=== PATIENT | male | born 1940 | race Hispanic/Latino ===

== ENCOUNTER 2020-10-28 13:14 | Observation (INO) | payer SELFPAY ==
[2020-10-28] VITALS (18 sets, daily range): BP systolic 104–148; BP diastolic 44–78; PULSE 63–91; RESP 16–20; TEMP 36.2–36.7; O2SAT 90–100; BMI 33.3
--- NOTE | ~2020-10-28 | XR_ITS ---
EXAMINATION: XR chest 1V portable DATE: 10/28/2020 13:35 INDICATION: Hypoxia. Altered mental status. TECHNIQUE: A single frontal view of the chest was obtained on 3 radiographs. COMPARISON: None. FINDINGS: The lung volumes are small. There is mild atelectasis at the lung bases. No pleural effusio n or pneumothorax. The heart size is normal. IMPRESSION: 1. Small lung volumes with mild atelectasis at the lung bases. Reviewed, dictated and finalized at location A.
--- NOTE | ~2020-10-28 | MR_ITS ---
EXAMINATION: MR brain/brain stem wo/w con DATE: 10/29/2020 12:06 INDICATION: Pituitary mass. TECHNIQUE: Magnetic resonance imaging (MRI) of the brain and brainstem was performed without and with 20 mL MultiHance intravenous contrast. Whole-brain sequences included sagittal T1-weighted FSE, axia l diffusion-weighted FS EPI, axial T2*-weighted GRE, axial T2-weighted FLAIR Propeller, and axial T2- weighted Propeller. Small vvjkk-fe-rkyz sequences included sagittal and coronal T1-weighted FSE cente red at the pituitary. Postcontrast sequences included small clhcx-wj-bmyx coronal T1-weighted FSE in a time course and sagittal T1-weighted FSE and whole-brain axial T1-weighted FSE. Apparent diffusion coefficient (ADC) maps were created. COMPARISON: Head CT 10/28/2020 FINDINGS: There is a hypoenhancing pituitary mass measuring 16 x 13 x 14 mm extending into the supras ellar cistern. The infundibulum is at the midline. No mass effect on the optic chiasm. There are scat tered areas of nonspecific increased T2-weighted signal intensity in the cerebral white matter, which is within normal limits for the patient's age. There is no acute ischemic infarct or intracranial he morrhage. The ventricles are normal in size. The paranasal sinuses are clear. The orbits are normal. The mastoid air cells are normal. IMPRESSION: 1. 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 Reviewed, dictated and finalized at location A.
--- NOTE | ~2020-10-28 | US_ITS ---
EXAMINATION: US carotid duplex BI DATE: 10/29/2020 13:47 INDICATION: Syncope. TECHNIQUE: Grayscale, color Doppler, and pulsed Doppler images of the cervical carotid arteries were obtained. The degree of vessel stenosis is placed in one of the following categories: normal, <50%, 5 0-69%, >=70% but less than near-occlusion, near-occlusion, or total occlusion. Note that percent sten osis relative to normal distal artery lumen diameter is indirectly measured from velocity measurement s as described by Jim, et al. Radiology 2003; 229:340-346. COMPARISON: None. FINDINGS: RIGHT: The right common carotid artery (CCA) peak systolic velocity (PSV) is 90 cm/s. The right internal car otid artery (ICA) PSV is 74 cm/s. The right ICA end-diastolic velocity (EDV) is 18 cm/s. The right IC A/CCA PSV ratio is 0.8. Grayscale and color Doppler images yield an estimate of <50% diameter reducti on from plaque in the ICA. There is antegrade flow in the right vertebral artery. LEFT: The left CCA PSV is 73 cm/s. The left ICA PSV is 128 cm/s. The left ICA EDV is 39 cm/s. The left ICA/ CCA PSV ratio is 1.7. Grayscale and color Doppler images yield an estimate of <50% diameter reduction from plaque in the ICA. There is antegrade flow in the left vertebral artery. IMPRESSION: 1. <50% stenosis in the right internal carotid artery. 2. <50% stenosis in the left internal carotid artery. Reviewed, dictated and finalized at location A.
--- NOTE | ~2020-10-28 | CT_ITS ---
EXAMINATION: CT brain wo con EXAM DATE: 10/28/2020 14:25 INDICATION: Altered mental status, patient found unresponsive. Nonverbal. TECHNIQUE: Spiral CT of the head was performed without contrast. Axial, coronal and sagittal images were reviewed. The dose-length product (DLP) for this examination was 605.33 mGy-cm. The exposure w as tailored according to patient size, and iterative reconstruction (ASIR) was used as additional dos e reduction technique. There is no prior study for comparison. FINDINGS: There is no acute intraparenchymal hemorrhage. Pituitary gland is enlarged measuring about 1.2 cm craniocaudal dimension, possibly with cystic region inferiorly. This is an incidental finding and could be evaluated with MR brain/pituitary when patient is able. No evidence of acute infarction . Please note that initial head CT has limited sensitivity for small or acute infarctions. There is mild periventricular and subcortical hypodensity, nonspecific but probably related to small vessel is chemic disease. There is moderate prominence of the sulci and ventricles related to cerebral atroph y. There is intracranial carotid arteriosclerosis. There are no extra-axial collections. There is no mass effect or midline shift. The orbits are unremarkable. Soft tissue is unremarkable. The vi sualized sinuses and mastoid air cells are well aerated. IMPRESSION: 1. No acute intracranial findings. 2. Incidental mildly enlarged pituitary; recommend MR brain/pituitary with contrast when patient is able. 3. Age-related intracranial findings. Reviewed, dictated and finalized at location A. IMPRESSION: 1. No acute intracranial findings. 2. Incidental mildly enlarged pituitary; recommend MR brain/pituitary with con trast when patient is able. 3. Age-related intracranial findings.
--- NOTE | ~2020-10-28 | CT_ITS ---
EXAMINATION: CT abdomen pelvis wo con DATE: 10/29/2020 10:16 INDICATION: Mid abdominal pain. TECHNIQUE: Computed tomography (CT) of the abdomen and pelvis was performed without intravenous contr ast. Automated exposure control and iterative reconstruction technique were employed. The dose-length product was 896.16 mGy-cm. COMPARISON: None. FINDINGS: The visualized portions of the lung bases demonstrate mild atelectasis. No pleural effusion . The heart size is normal. No pericardial effusion. The liver, gallbladder, spleen, pancreas, adrena l glands, and right kidney are normal. There is a 1.8 cm cyst in left kidney. The prostate is severel y enlarged. There are no dilated loops of bowel. The appendix is normal. There are no pathologically enlarged lymph nodes. There is no free intraperitoneal fluid. There is lumbar levoscoliosis and sever e spondylosis. IMPRESSION: 1. No etiology for the patient's symptoms. Reviewed, dictated and finalized at location A.
[2020-10-28] MEDS: SODIUM CHLORIDE 0.9% IV 1,000 ML 999 ML IV CONT (13:15)
[2020-10-28] MEDS: EPINEPHrine HCL INJ 1 MG/ML AMPUL 0.3 MG SUB-Q (13:21)
--- NOTE | 2020-10-28 13:52 | ED.AMS ---
HPI - Altered Mental Status General Chief Complaint: Altered Mental Status Stated Complaint: ambulance Time Seen by Provider: 10/28/20 13:18 Source: EMS Mode of arrival: EMS Limitations: altered mental status History of Present Illness HPI narrative: 80-year-old man brought into the emergency department today by EMS after having been found by his son-in-law sitting and unconscious. Patient was helping His son-in-law well as son-in-law worked on a roof. The son-in-law found him slumped over in a chair and unresponsive. EMS states that he spoke some Dutch at the scene and had moved all of his limbs, even pushing them away somewhat. He then reverted to his unresponsive state. Blood sugar was 139 at the scene. Son in law notes that there were some wasps at the scene. No known past medical history. MD complaint: altered mental status Onset (ago): minute(s) (30) Timing confirmed by: family member Severity: severe Consistency of symptoms: waxing and waning Treatments prior to arrival: IV fluid Related Data Home Medications Medication Instructions Recorded Confirmed No Home Medications 10/28/20 10/28/20 Allergies Allergy/AdvReac Type Severity Reaction Status Date / Time No Known Allergies Allergy Verified 10/28/20 14:47 Review of Systems Review of Systems: ROS unobtainable: Yes unobtainable due to mental status [facility] Social History Social History (Updated 10/28/20 @ 16:42 by Edgardo Chambers MD) Smoking status: Never smoker Alcohol intake: never Alcohol use details: Occasional Substance use: never Living arrangements: with family Gender identity (if verbalized by the patient): Male Sexual Orientation (if Verbalized by the Patient): Straight or Heterosexual Spiritual care concerns: No Exam Const: General: no acute distress and diaphoretic Nutritional Appearance: obese Other: diffuse erythema HENMT: Head: normal to inspection Ears: external ears normal, TM's normal bilaterally and EAC's normal General nose exam: Normal nares present Face and sinus: normal facial exam Mouth: Yes moist mucous membranes Throat: posterior oropharynx normal Eyes: Conjunctivae: conjunctivae normal Pupils: Equal, round and reactive pupils present EOM: EOMs intact bilaterally Neck: Neck: normal visual inspection and no lymphadenopathy Resp: Effort & Inspection: not labored Auscultation: clear to auscultation bilaterally, no rales, no rhonchi and no wheezes Other: Diminished respiratory effort. Currently on non-rebreather. Cardio: Rate: regular rate Rhythm: regular rhythm Heart sounds: no murmurs Other: No JVD. GI: GI Palp: Yes Soft to palpation, No Tenderness to palpation present (GI) and No Guarding due to palpation present (GI) Auscultation: normal bowel sounds Skin: General skin exam: no jaundice and no pallor Other: Diffuse erythema Neuro: General: moves all extremities and no focal motor deficits Other: Symmetric faces. Extrem: General: normal to inspection Other: No clubbing or cyanosis. Mild diffuse edema. Psych: Appearance: well kempt Other: Occasionally mumbles to stimulation. Does not withdraw to pain. Course Course Emergency Course: 1445: Through his son as a freezer person, patient is alert and oriented x 3. He states that there was a lot of dust at the scene and does not recall getting stung by an insect or anything else other than feeling lightheaded which caused him to sit down and then pass out. Denies pain, chest pain, nausea, sweating, shortness of breath. 1645: Discussed plan with family and patient with his son being a freezer person. Agrees to observation admit with MRI tomorrow. Vital Signs Vital signs: Vital Signs Temperature 36.2 C L 10/28/20 13:15 Pulse Rate 91 10/28/20 13:15 Respiratory Rate 20 10/28/20 13:15 Blood Pressure 104/67 10/28/20 13:15 Pulse Oximetry 90 10/28/20 13:15 Temperature 36.3 C L 10/28/20 17:15 Pulse
--- NOTE | 2020-10-28 13:56 | PC.NURSE ---
1355 EMS HAD STARTED AN IV IN RIGHT HAND IT WAS PULLED OUT WHEN GETTING HIS CLOTHS CUT OFF
[2020-10-28 14:08] LABS: Base Excess ABG -2.9 mmol/L (0-2); HCO3 ABG 21.9 mmol/L (23-29); Oxygen Content ABG 21.6 %vol (16.0-22.0); Oxygen Saturation ABG 94.3 % (95-97); Oxyhemoglobin 93.9 % (94-100); PCO2 ABG 38.7 mmHg (35-45); PO2 ABG 70.8 mmHg (75-85); Total Hemoglobin 16.4 g/dL; pH ABG 7.37 (7.35-7.45)
--- NOTE | 2020-10-28 14:08 | ECG_ITS ---
Measurements Intervals [place] Rate: 89 P: 59 ID: 128 QRS: 60 QRSD: 105 T: 45 QT: 394 QTc: 481 Interpretive Statements SINUS RHYTHM INFERIOR INFARCT, AGE INDETERMINATE BORDERLINE ST ABNORMALITY- ANTEROLATERAL LEADS BASELINE ARTIFACT- I, AVL ABNORMAL ECG Electronically Signed On 10-28-2020 16:51:10 CDT by Pio Caceres D.O.
[2020-10-28 14:12] LABS: Device NASAL CANNULA; Site Drawn LEFT RADIAL
[2020-10-28 14:13] LABS: Basophils Absolute Auto 0.03 K/mm3 (0.00-0.10); Basophils Percent Auto 0.2 % (0.0-1.0); Eosinophils Absolute Auto 0.24 K/mm3 (0.02-0.50); Eosinophils Percent Auto 1.6 % (1.0-6.0); Hematocrit 49.1 % (37.0-46.0); Hemoglobin 15.8 g/dL (12.4-15.3); Immature Granulocyte Absolute 0.06 K/mm3 (0.00-0.00); Immature Granulocyte Percent A 0.4 % (0.0-0.0); Lymphocytes Absolute Auto 3.75 K/mm3 (1.10-4.50); Lymphocytes Percent Auto 25.6 % (18.0-42.0); Mean Corpuscular HGB Conc 32.2 g/dL (32.0-36.0); Mean Corpuscular Hemoglobin 28.8 pg (27.0-31.0); Mean Corpuscular Volume 89.6 fL (78.0-102.0); Mean Platelet Volume 11.1 fl (8.7-11.0); Monocytes Percent Auto 4.8 % (2.0-11.0); Neutrophils Absolute Auto 9.9 K/mm3 (1.7-7.2); Neutrophils Percent Auto 67.4 % (50.0-70.0); Platelet Count Result 221 K/mm3 (150-420); Red Blood Count 5.48 M/mm3 (4.70-6.10); Red Cell Distribution Width 14.5 % (11.6-14.4); White Blood Count 14.7 K/mm3 (4.8-10.8)
[2020-10-28 14:23] LABS: Add Urine Microscopic? YES; Appearance Urine Clear (Clear); Bilirubin Urine Negative (Negative); Blood Urine 3+ (Negative); Color Urine Yellow (Yellow); Glucose Urine UA Negative (Negative); Ketones Urine Negative (Negative); Leukocyte Esterase Ur Negative LEU/UL (Negative); Nitrate Urine Negative (Negative); Protein Urine Negative (Negative); Specific Grav Ur >= 1.030 (1.010-1.020); Urobilinogen Urine 0.2 mg/dL (0.2-1.0); pH Urine 5.5 (5.0-8.0)
[2020-10-28 14:31] LABS: Alanine Aminotransferase 18 U/L (16-63); Albumin Level 3.2 g/dL (3.4-5.0); Alkaline Phosphatase 36 U/L (46-116); Ammonia 12 umol/L (11-32); Anion Gap 10 mmol/L (8-16); Aspartate Amino Transferase 20 U/L (15-37); Bilirubin,Total 0.6 mg/dL (0.00-1.00); Blood Urea Nitrogen 16 mg/dL (7-18); Calcium 8.7 mg/dL (8.5-10.1); Carbon Dioxide 27 mmol/L (21-32); Chloride 104 mmol/L (98-108); Creatine Kinase 128 U/L (39-308); Estimated Glomerular Filt Rate 47; Glucose 153 mg/dL (70-99); Osmolality Calculated 296 mOsm/kg (285-295); Potassium 2.9 mmol/L (3.5-5.1); Salicylate 0.4 mg/dL (2.8-20.0); Sodium 141 mmol/L (136-145); Total Protein 6.2 g/dL (6.4-8.2); Troponin I 14.6 ng/L (0.00-60.4)
[2020-10-28 14:33] LABS: Acetaminophen < 2 ug/mL (10-30); Ethanol < 3 mg/dL (0-6)
[2020-10-28 14:34] LABS: Lactic Acid Reflex 3.6 mmol/L (0.4-2.0)
[2020-10-28 14:34] LABS: INR 1.1; Partial Thromboplastin Time 24.2 SEC (23.90-30.70); Prothrombin Time 11.7 Seconds (9.50-12.10)
[2020-10-28 14:40] LABS: Amphetamine Screen Urine Negative (Negative); Barbiturate Screen Urine Negative (Negative); Benzodiazepines Screen Urine Negative (Negative); Cannabinoid Screen Urine Negative (Negative); Cocaine Screen Urine Negative (Negative); Methadone Screen Urine Negative (Negative); Opiate Screen Urine Negative (Negative); Phencyclidine Screen Urine Negative (Negative)
[2020-10-28 14:44] LABS: RBC Urine 51-75 /hpf (0-2); Squamous Epithelial Cell Urine Few /hpf (Few); WBC Urine 0-3 /hpf (0-3)
[2020-10-28] MEDS: methylPREDNISolone SOD SUCC 125 MG VIAL IV PUSH (14:50)
[2020-10-28] MEDS: POTASSIUM CHLORIDE 20 MEQ TABLET 40 MEQ PO (17:03)
[2020-10-28 17:08] LABS: Reflex Lactic Acid Yes or No Add Lactic
--- NOTE | 2020-10-28 17:36 | ADMGEN ---
This patient, Bobby Whitmore, was admitted to 2nd Floor Room 203-2. Patient/family oriented to hospital policies and general routines including ID bracelet, bed and alarms, visiting hours, pain management, procedures, bathroom and other care routines, personal items, smoking policy, room service/diet, and visiting hours. Patient is azeri speaking,Son who is bilingual is in room to assist in translation. Information on how to activate the Rapid Response Team has been discussed. Patient/Family are encouraged to report perceived risks to care and to ask questions if they do not understand what they are told or what they should do.
[2020-10-28] MEDS: ALBUTEROL SULFATE NEB 2.5 MG/3 ML INH INHALATION ×2 (17:41→22:51)
[2020-10-28] MEDS: SODIUM CHLORIDE 0.9% IV 1,000 ML 100 ML IV CONT (17:45)
[2020-10-28] MEDS: KCL 20 MEQ/SW 100 ML 100 ML 50 MEQ IVPB (17:46)
[2020-10-28 18:26] LABS: Troponin I 97.9 ng/L (0.00-60.4)
--- NOTE | 2020-10-28 18:28 | PC.NURSE ---
TROPONIN REPORTED TO DR ZHU
--- NOTE | 2020-10-28 20:15 | PC.NURSE ---
Son (Oracio) is here and will stay the night with patient. Son speaks Sammarinese and Turkmen and patient only speaks Turkmen so son is able to translate for us.
[2020-10-28 21:20] LABS: Glucose Point of Care 141 (65-105)
[2020-10-28 21:27] LABS: Troponin I 71.9 ng/L (0.00-60.4)
[2020-10-28] MEDS: methylPREDNISolone SOD SUCC 40 MG VIAL IV PUSH (22:02)
[2020-10-28] MEDS: ASPIRIN 81 MG CHEWABLE TABLET 324 MG PO (23:46)
[2020-10-29] VITALS (7 sets, daily range): BP systolic 109–136; BP diastolic 57–75; PULSE 70–90; RESP 16–20; TEMP 36.3–37.1; O2SAT 91–94
[2020-10-29 00:32] LABS: Anion Gap 7 mmol/L (8-16); Blood Urea Nitrogen 18 mg/dL (7-18); Calcium 8.5 mg/dL (8.5-10.1); Carbon Dioxide 26 mmol/L (21-32); Chloride 106 mmol/L (98-108); Estimated CRCL calculation 54 ml/min; Estimated Glomerular Filt Rate > 60; Glucose 145 mg/dL (70-99); Osmolality Calculated 292 mOsm/kg (285-295); Potassium 4.2 mmol/L (3.5-5.1); Sodium 139 mmol/L (136-145)
--- NOTE | 2020-10-29 01:36 | PC.NURSE ---
Reported to Dr. Chambers pt's troponin value of 43.0. No new orders at this time.
[2020-10-29] MEDS: SODIUM CHLORIDE 0.9% IV 1,000 ML 100 ML IV CONT (03:58)
[2020-10-29] MEDS: methylPREDNISolone SOD SUCC 40 MG VIAL IV PUSH ×2 (05:00→13:57)
[2020-10-29 05:28] LABS: Basophils Absolute Auto 0.01 K/mm3 (0.00-0.10); Basophils Percent Auto 0.1 % (0.0-1.0); Hemoglobin 14.6 g/dL (12.4-15.3); Immature Granulocyte Absolute 0.05 K/mm3 (0.00-0.00); Immature Granulocyte Percent A 0.5 % (0.0-0.0); Lymphocytes Absolute Auto 1.18 K/mm3 (1.10-4.50); Lymphocytes Percent Auto 11.5 % (18.0-42.0); Mean Corpuscular HGB Conc 32.4 g/dL (32.0-36.0); Mean Corpuscular Hemoglobin 29.4 pg (27.0-31.0); Mean Corpuscular Volume 90.5 fL (78.0-102.0); Mean Platelet Volume 11.7 fl (8.7-11.0); Monocytes Absolute Auto 0.09 K/mm3 (0.10-0.90); Monocytes Percent Auto 0.9 % (2.0-11.0); Neutrophils Absolute Auto 8.9 K/mm3 (1.7-7.2); Platelet Count Result 194 K/mm3 (150-420); Red Blood Count 4.97 M/mm3 (4.70-6.10); Red Cell Distribution Width 14.9 % (11.6-14.4); White Blood Count 10.3 K/mm3 (4.8-10.8)
[2020-10-29] MEDS: ALBUTEROL SULFATE NEB 2.5 MG/3 ML INH INHALATION (05:36)
[2020-10-29 05:40] LABS: Alanine Aminotransferase 18 U/L (16-63); Alkaline Phosphatase 32 U/L (46-116); Anion Gap 7 mmol/L (8-16); Aspartate Amino Transferase 21 U/L (15-37); Bilirubin,Total 0.5 mg/dL (0.00-1.00); Blood Urea Nitrogen 19 mg/dL (7-18); Calcium 8.3 mg/dL (8.5-10.1); Carbon Dioxide 25 mmol/L (21-32); Chloride 108 mmol/L (98-108); Estimated CRCL calculation 60 ml/min; Estimated Glomerular Filt Rate > 60; Glucose 142 mg/dL (70-99); Osmolality Calculated 294 mOsm/kg (285-295); Potassium 4.1 mmol/L (3.5-5.1); Sodium 140 mmol/L (136-145); Total Protein 6.2 g/dL (6.4-8.2); Troponin I 24.8 ng/L (0.00-60.4)
[2020-10-29 07:52] LABS: Glucose Point of Care 114 (65-105)
[2020-10-29 08:22] LABS: Thyroid Stimulating Hormone Reflex 0.76 u/IU/mL (0.36-3.74)
[2020-10-29 08:43] LABS: Hemoglobin A1C 5.7 % (<5.7)
[2020-10-29 08:47] LABS: Lactic Acid Reflex 1.5 mmol/L (0.4-2.0)
--- NOTE | 2020-10-29 10:05 | PC.NURSE ---
Patient taken down for CTA and MRI of brain via wheelchair accompanied by floor care technician.
--- NOTE | 2020-10-29 10:21 | ECHO_ITS ---
Patient Info Name: Bobby Whitmore Age: 80 years : 1940 Gender: Male Ht: 69 in Wt: 225 lbs BSA: 2.26 m2 HR: 69 bpm BP: 116 / 63 mmHg Technical Quality: Fair Exam Date: 10/29/2020 10:48 AM Exam Location: [facility] Patient Status: Inpatient Admit Date: 10/28/2020 Staff Ordering Physician: Cameron LegerP-[employer] Supervisor: Kenna Infante RDCS Attending Provider: Edgardo Chambers MD Referring Physician: Arsen GRESHAM; Exam Type: CA echo doppler color flow Study Info Indications R55 - Syncope and collapse Complete two-dimensional, color flow and Doppler transthoracic echocardiogram is performed. Strain analysis performed. History/Risk Factors Obesity: Yes Tobacco Use: Never Summary 1. Complete two-dimensional, color flow and Doppler transthoracic echocardiogram is performed. 2. Left ventricular chamber dimension is normal. 3. Left ventricular systolic function is normal, estimated at 65-70%. 4. There is mildly increased left ventricular wall thickness. 5. The left ventricular diastolic function is grade I diastolic dysfunction. 6. E/e' 11 is mildly elevated. 7. Global longitudinal strain is mildly abnormal at -16.3%. 8. There is mild aortic valve sclerosis. 9. There is mild aortic valve regurgitation. 10. No pulmonary hypertension, estimated pulmonary arterial systolic pressure is 29 mmHg. Left Ventricle E/e' 11 is mildly elevated. Global longitudinal strain is mildly abnormal at -16.3%. Left ventricular chamber dimension is normal. Left ventricular systolic function is normal, estimated at 65-70%. There is mildly increased left ventricular wall thickness. The left ventricular diastolic function is grade I diastolic dysfunction. Right Ventricle Right ventricular chamber dimension is normal. Right ventricular systolic function is normal. Left Atria Left atrial chamber dimension is normal. Right Atria Right atrial chamber dimension is normal. Aortic Valve The aortic valve is trileaflet. There is mild aortic valve sclerosis. There is no aortic valve stenosis. There is mild aortic valve regurgitation. Pulmonic Valve There is no pulmonic regurgitation. Mitral Valve There is no mitral valve stenosis. There is no mitral valve regurgitation. Tricuspid Valve There is no tricuspid valve regurgitation. No pulmonary hypertension, estimated pulmonary arterial systolic pressure is 29 mmHg. Pericardium/Pleural There is no pericardial effusion. Inferior Vena Cava Normal inferior vena cava with >50% collapse upon inspiration consistent with normal right atrial pressure, 5 mmHg. Aorta The aortic root size at the sinus of Valsalva is normal. Left Ventricular Outflow Tract Name Value Normal LVOT 2D LVOT Diameter 2.0 cm LVOT Doppler LVOT Peak Velocity 131 cm/s LVOT Peak Gradient 7 mmHg LVOT Mean Gradient 3 mmHg LVOT VTI 32 cm LVOT VTI/AV VTI Ratio 0.9 LVOT Stroke Volume 100
--- NOTE | 2020-10-29 13:10 | PC.NURSE ---
Patient back to room from having MRI/CT. Patient transferred to bed with 1 assist. Lunch tray delivered and set up. Son in room with patient.
--- NOTE | 2020-10-29 13:10 | PM.SD2 ---
Same Day Admit/Disch: HPI History of Present Illness Chief complaint: AMS ALLERGIC REACTION <PIETER Walker - Last Filed: 10/29/20 14:52> Narrative: Bobby Whitmore is a 80 year old male that presented to our emergency room after having a syncopal episode. Patient denies any past medical history. This is a Azeri-speaking patient his son is interpreting for us. According to patient he was assisting his son with repairing a rub and clamped into a dumpster when he started experiencing lightheaded and dizziness. He does admit working around chemicals. Patient then climbed out of the dumpster symphysis to his with the latter afterwards he sat in the chair he noted while sitting in the chair he felt lightheaded dizziness and a warm sensation in body, he does not remember anything afterwards. At this time patient denies SOB, CP, palpitation, extremity numbness, lightheadedness, dizziness, constipation, diarrhea, chills, or fever. Patient did complain of epigastric pain that he has had for approximately 2 to 3 days. Patient is anxious to discharge today Disposition: Patient will discharge home he will need to get a primary care physician and get a referral to the drill doctor <PIETER Walker - Last Filed: 10/29/20 14:52> PMFSH Social History Social History: Social History (Updated 10/28/20 @ 16:42 by Edgardo Chambers MD) Smoking status: Never smoker Alcohol intake: never Substance use: never Gender identity (if verbalized by the patient): Male Spiritual care concerns: No <PIETER Walker - Last Filed: 10/29/20 14:52> Same Day Admit/Disch: Med Pre-admit Medications Home Medications: Home Medications Medication Instructions Recorded Confirmed Type No Home Medications 10/28/20 10/28/20 History <PIETER Walker - Last Filed: 10/29/20 14:52> Exam Narrative: Exam Narrative: GENERAL: This is a well-nourished, well-developed patient, in no apparent distress. Negative for slurring or inappropriate words HEAD: normocephalic, atraumatic. Face symmetrical EYES: PERRL. Sclera clear/white. Vision is grossly intact. EARS: External ears normal, auditory canals clear and without drainage, TMs normal without perforation. Hearing grossly intact. NOSE: External nose normal with no obvious nasal discharge, nares without redness, no rhinorrhea. THROAT: Mucous membranes moist, posterior pharynx clear. NECK: Neck supple, non-tender without lymphadenopathy, masses or thyromegaly. CARDIOVASCULAR: Regular rate and rhythm without murmurs, gallops, or rubs. RESPIRATORY: Clear to auscultation. Breath sounds equal bilaterally. No wheezes, rales, or rhonchi. GASTROINTESTINAL: Abdomen soft, non-tender, nondistended. Bowel sounds are active. No hepato-splenomegaly, or palpable masses. No guarding. SKIN: warm, intact with no suspicious lesions or rash, good texture and turgor. NEURO: awake, alert, and oriented to person, place and time. There were no obvious focal neurologic abnormalities. Steady gait EXTREMITIES: Normal range of motion. No edema. No calf tenderness. Negative Homans sign bilaterally. Muscle strength and home care specialist equal bilateral BACK: Nontender without deformity or crepitance. No flank tenderness. <Cameron Leger, INVESTOR RELATIONS ASSOCIATE[employer]C - Last Filed: 10/29/20 14:52> DS: Data Data Completed and Pending Labs on day of discharge: Labs from last 24 hours 10/29/20 10/29/20 10/29/20 08:20 08:20 07:48 WBC RBC Hgb Hct MCV MCH MCHC RDW Plt Count MPV Immature Gran % (Auto) Neut % (Auto) Lymph % (Auto) Iron % (Auto) Eos % (Auto) Baso % (Auto) Lymph # (Auto) Iron # (Auto) Eos # (Auto) Baso # (Auto) Abs Immat Gran (auto) Absolute Neuts (auto) Absolute Nucleated RBC Nucleated RBC % PT INR APTT Puncture Site ABG pH ABG pCO2 ABG pO2 ABG PO2/FiO2 Ratio ABG HCO3 AB
[2020-10-29 13:20] LABS: Glucose Point of Care 86 (65-105)
--- NOTE | 2020-10-29 15:15 | PC.NURSE ---
Patient being discharged home. All discharge instructions reviewed with patient and with Son, Son assisted in translating information for patient. All belongings gathered together and sent home with patient. IV site removed, tip intact, dressing applied to site. Patient left floor ambulatory accompanied by son.
--- NOTE | 2020-11-03 11:13 | PC.NURSE ---
Unable to contact for discharge call back.
== END 2020-10-29 15:15 | disposition home or self-care (01) ==
LOC: CHSED 16:52 → CHS2ND 16:57
PROVIDERS: Nurse Practitioner; Admitting Provider Emergency Medicine; Emergency Provider Emergency Medicine; Visit Provider Emergency Medicine
DX: R41.82 Altered mental status, unspecified (principal); T78.40XA Allergy, unspecified, initial encounter; R40.20 Unspecified coma; R10.13 Epigastric pain; I35.1 Nonrheumatic aortic (valve) insufficiency; E23.7 Disorder of pituitary gland, unspecified
CPT/HCPCS: 36415; 36600; 70450; 70553; 71045; 74176; 80048; 80053; 80307; 81001; 82140; 82550; 82805; 83036; 83605; 84443; 84484; 85025; 85610; 85730; 87040; 93005; 93306; 93880; 94640; 96361; 96365; 96366; 96372; 96374; 96375; 96376; 99283; 99285; A9270; A9577; G0378; G0379; J0171; J2920; J2930; J3480; J7030